=== PATIENT | female | born 1985 | race Caucasian/White ===

== ENCOUNTER 2022-06-14 08:16 | Emergency (ER) | payer OTHER, SELFPAY ==
--- NOTE | 2022-06-14 08:29 | ED.EAR ---
HPI - Ear Problem General Chief complaint: Ear Stated complaint: pos ear infection Time Seen by Provider: 06/14/22 09:03 Source: patient and RN notes reviewed Mode of arrival: ambulatory Limitations: no limitations History of Present Illness HPI Narrative: 37-year-old female presents with concern for left ear pain. She reports she was treated for a double ear infection several weeks ago, her ear left pain has not fully resolved. She reports she has after that she was also treated for strep throat. She reports she has left ear pain and left sinus congestion. She denies fever, aches, chills, sweats, cough. MD Complaint: ear pain Related Data Home Medications Medication Instructions Recorded Confirmed levothyroxine 50 mcg tablet 50 mcg PO DIRECTED 06/14/22 06/14/22 Allergies Allergy/AdvReac Type Severity Reaction Status Date / Time No Known Allergies Allergy Verified 06/14/22 08:40 Review of Systems Review of Systems: CONSTITUTIONAL: Denies malaise, chills, sweats, or fever. EYES: Denies visual changes, redness, or discharge. ENT: Reports left-sided rhinorrhea, congestion, sinus pain. Denies sore throat. Reports last ear pain CARDIOVASCULAR: Denies chest pain, palpitations, or edema. RESPIRATORY: Denies cough. Denies dyspnea. GASTROINTESTINAL: Denies abdominal pain, nausea, vomiting, diarrhea SKIN: Denies rash or itching. MUSCULOSKELETAL: Denies myalgia. NEUROLOGIC: Denies headache. All systems reviewed & are unremarkable except as noted in HPI and below PMFSH Social History Social History Smoking status: Never smoker Alcohol intake: current Comments At time of signature, agree with nursing past medical, surgical, social and family history. There is no relevant family history pertinent to the presenting complaint Exam Narrative: GENERAL: Well-appearing, well-nourished, and in no acute distress. HEAD: Normocephalic EYES: PERRLA, conjunctivae clear ENT: Nares clear, left-sided turbinates edematous, clear discharge. Mucous membranes moist. TM pearly elizabeth with sharp light reflex bilaterally; no tragal tenderness. Oropharynx not erythematous without lesions. Tonsils not enlarged and without exudate, no drooling, no hoarseness, no trismus, uvula midline. NECK: Supple. No lymphadenopathy CHEST: Clear to auscultation, breath sounds equal. No wheezing, rhonchi, rales, or stridor. No respiratory distress, speaks in full sentences. HEART: Regular rate and rhythm. No murmur heard. SKIN: Warm, dry, no rash. NEURO: Alert and oriented x3. PSYCH: Normal mood and affect Course Course Emergency Course: Patient is aware of diagnosis, understands and agrees to treatment plan. Anticipatory guidance given. Patient agrees to follow-up as directed and is aware of reasons to seek care at the emergency department. Portions of this record may have been created with voice recognition software Level of Care: Express Care Visit Vital Signs Vital signs: Vital Signs Temperature 98.3 F 06/14/22 08:30 Pulse Rate 56 L 06/14/22 08:30 Respiratory Rate 16 06/14/22 08:30 Blood Pressure 134/55 L 06/14/22 08:30 Pulse Oximetry 68 L 06/14/22 08:30 Oxygen Delivery Room Air 06/14/22 08:30 Temperature 98.3 F 06/14/22 08:30 Pulse Rate 56 L 06/14/22 08:30 Respiratory Rate 16 06/14/22 08:30 Blood Pressure 134/55 L 06/14/22 08:30 Pulse Oximetry 68 L 06/14/22 08:30 Oxygen Delivery Room Air 06/14/22 08:30 Reviewed. Medical Decision Making MDM Narrative Medical decision making narrative: Differential diagnosis considered: Oscar virus, strep pharyngitis, allergic rhinitis, upper respiratory tract infection, sinusitis, rhinosinusitis, nasopharyngitis. viral pharyngitis, otitis media, otitis externa, otitis effusion, cerumen impaction, foreign body. Exam findings show no acute concerns or changes; patient is non-toxic appearing and is in no distress. Patient is appropriate for outpatient treatment a
[2022-06-14 08:30] VITALS: BP 134/55; PULSE 56; RESP 16; TEMP 36.8; O2SAT 68
== END 2022-06-14 09:16 | disposition home or self-care (01) ==
PROVIDERS: Emergency Provider Nurse Practitioner; PCP Family Medicine
DX: J32.9 Chronic sinusitis, unspecified (principal); E03.9 Hypothyroidism, unspecified
CPT/HCPCS: 99213; G0463